=== PATIENT | male | born 1935 | race Caucasian/White ===

== ENCOUNTER 2016-08-04 15:10 | Outpatient (CLI) | payer MEDICARE ==
[2016-08-04 15:53] LABS: #Basophils 0.1 thou/uL (0.0-0.2); #Eosinphils 0.1 thou/uL (0.0-0.7); #Lymphocytes 1.1 thou/uL (1.20-3.40); #Monocytes 0.7 thou/uL (0.11-0.59); #Neutrophils 5.1 thou/uL (1.40-6.50); %Basophils 1.4 % (0.0-1.0); %Eosinophils 1.3 % (0.0-10.0); %Lymphocytes 14.9 % (21.0-51.0); %Monocytes 9.8 % (0.0-10.0); %Neutrophils 72.7 % (42.0-75.0); Hemoglobin 8.6 g/dL (14.0-18.0); Mean Corpuscular HGB CONC 31.5 g/dL (32.0-36.0); Mean Corpuscular Hemoglobin 27.1 pg (27.0-31.0); Mean Corpuscular Volume 86.1 fl (80.0-94.0); Mean Platelet Volume 8.4 fL (7.4-10.4); Platelet Count 231 thou/uL (130-400); RBC Distribution Width 15.2 % (11.5-14.5); Red Blood Cell (RBC) Count 3.17 mill/uL (4.70-6.10)
[2016-08-04 15:55] LABS: Anion Gap 16 mmol/L (10-20); BUN (Urea Nitrogen) 35 mg/dL (8.4-25.7); Calc. Creatinine Clearance 0 mL/min (70-130); Calcium 8.7 mg/dL (7.8-10.44); Carbon Dioxide 21 mmol/L (23-31); Chloride 106 mmol/L (98-107); Estimated GFR-MDRD 35; Glucose 118 mg/dL (83-110); Potassium 5.1 mmol/L (3.5-5.1); Sodium 138 mmol/L (136-145)
== END 2016-08-04 15:11 | disposition home or self-care (01) ==
LOC: BURLAB 15:10
PROVIDERS: ATTEND Specialist
DX: I25.10 Atherosclerotic heart disease of native coronary artery without angina pectoris (principal); R06.02 Shortness of breath; R53.83 Other fatigue; Z79.899 Other long term (current) drug therapy
CPT/HCPCS: 36415; 80048; 85025

== ENCOUNTER 2016-08-20 09:10 | Outpatient (CLI) | payer MEDICARE ==
[2016-08-20 17:48] LABS: Iron 15 ug/dL (65-175); Iron Binding Capacity, Total 435 mcg/dL (261-462)
== END 2016-08-20 09:11 | disposition home or self-care (01) ==
LOC: BURLAB 09:10
PROVIDERS: ATTEND Specialist
DX: D50.9 Iron deficiency anemia, unspecified (principal)
CPT/HCPCS: 36415; 82728; 83540; 83550

== ENCOUNTER 2016-09-17 08:47 | Outpatient (CLI) | payer MEDICARE ==
[2016-09-17 09:20] LABS: Mean Corpuscular HGB CONC 31.2 g/dL (32.0-36.0); Mean Corpuscular Hemoglobin 27.6 pg (27.0-31.0); Mean Corpuscular Volume 88.3 fl (80.0-94.0); Mean Platelet Volume 9.1 fL (7.4-10.4); Platelet Count 222 thou/uL (130-400); RBC Distribution Width 20.4 % (11.5-14.5); Red Blood Cell (RBC) Count 4.35 mill/uL (4.70-6.10); White Blood Cell (WBC) Count 6.5 thou/uL (4.8-10.8)
== END 2016-09-17 08:48 | disposition home or self-care (01) ==
LOC: BURLAB 08:47
PROVIDERS: ATTEND Specialist
DX: Z51.81 Encounter for therapeutic drug level monitoring (principal); Z79.899 Other long term (current) drug therapy
CPT/HCPCS: 36415; 85027

== ENCOUNTER 2017-01-12 10:55 | Outpatient (CLI) | payer MEDICARE | END 2017-01-12 10:56 | disposition home or self-care (01) | LOC: HPCALD 10:55 | PROVIDERS: ATTEND Family Medicine | DX: M25.571 Pain in right ankle and joints of right foot (principal) | CPT/HCPCS: 36415; 84550 ==

== ENCOUNTER 2017-01-12 10:55 | Outpatient (CLI) | payer MEDICARE ==
--- NOTE | 2017-01-12 20:08 | RAD ---
RIGHT ANKLE THREE VIEWS: 01/12/17 The oblique view has some motion artifact on it. No acute fracture was seen. Old injury is evident a t the medial malleolus an the tip of the lateral malleolus. The joint space appears normal. A small calcaneal spur was present. Pes planus is suggested. IMPRESSION: Old injuries but no acute finding. POS: HOME
== END 2017-01-12 10:56 | disposition home or self-care (01) ==
LOC: BURRAD 10:55
PROVIDERS: ATTEND Family Medicine
DX: M25.571 Pain in right ankle and joints of right foot (principal)
CPT/HCPCS: 36415; 84550

== ENCOUNTER 2018-07-06 10:25 | Emergency (ER) | payer MEDICARE ==
[2018-07-06] MEDS ORDERED: Aspirin Chewable 81 MG TAB ONE (10:40)
[2018-07-06] MEDS ORDERED: Nitroglycerin 0.4 MG TAB 1 EACH ONE (10:40)
[2018-07-06 10:44] LABS: #Basophils 0.1 thou/uL (0.0-0.2); #Eosinphils 0.1 thou/uL (0.0-0.7); #Lymphocytes 2.2 thou/uL (1.20-3.40); #Monocytes 0.8 thou/uL (0.11-0.59); #Neutrophils 3.6 thou/uL (1.40-6.50); %Basophils 1.4 % (0.0-1.0); %Eosinophils 2.1 % (0.0-10.0); %Lymphocytes 32.7 % (21.0-51.0); %Monocytes 11.1 % (0.0-10.0); %Neutrophils 52.6 % (42.0-75.0); Hemoglobin 13.3 g/dL (14.0-18.0); Mean Corpuscular HGB CONC 32.4 g/dL (32.0-36.0); Mean Corpuscular Hemoglobin 33.2 pg (27.0-31.0); Mean Platelet Volume 8.8 fL (7.4-10.4); Platelet Count 196 thou/uL (130-400); RBC Distribution Width 13.5 % (11.5-14.5); White Blood Cell (WBC) Count 6.7 thou/uL (4.8-10.8)
[2018-07-06 11:02] LABS: ALT (SGPT) 19 U/L (8-55); AST (SGOT) 24 U/L (5-34); Albumin 4.2 g/dL (3.4-4.8); Alkaline Phosphatase 74 U/L (40-150); Anion Gap 14 mmol/L (10-20); BUN (Urea Nitrogen) 25 mg/dL (8.4-25.7); Bilirubin, Total 0.5 mg/dL (0.2-1.2); Calc. Creatinine Clearance 0 mL/min (70-130); Calcium 9.2 mg/dL (7.8-10.44); Carbon Dioxide 24 mmol/L (23-31); Chloride 105 mmol/L (98-107); Estimated GFR-MDRD 39; Globulin 3.3 g/dL (2.4-3.5); Glucose 100 mg/dL (83-110); Lipase 34 U/L (8-78); Potassium 4.1 mmol/L (3.5-5.1); Protein, Total 7.5 g/dL (5.8-8.1); Sodium 139 mmol/L (136-145)
--- NOTE | 2018-07-06 21:58 | CT ---
CT AORTIC DISSECTION: 07/06/2018 TECHNIQUE: A spiral CT of the chest and abdomen, to cover the entirety of the aorta, was performed. Axial slice s were acquired after a bolus of IV contrast, and scanning was done in the arterial phase. Coronal a nd sagittal reconstructions were then done. I also reviewed a 2016 MRI of the lumbar spine to see so me of the abdominal structures. The aorta is well opacified. There is no sign of focal aneurysm or dissection. Considerable arterio sclerotic change is seen in the abdominal portion of the aorta. and the proximal iliac arteries. Bec ause this study was done in the arterial phase, the pulmonary arteries are not sufficiently opacified to comment on presence or absence of emboli. There is no sign of pericardial effusion. There is extensive calcification in the left anterior desc ending artery with humerous irregular areas within it. Some calcium is also seen in the right hoffman ry artery. No mediastinal masses or significant adenopathy with sound. Changes are seen throughout the lungs. There is some motion artifact present, which makes it difficult to see well. There may b e some mild congestion of the venous vessels. No large effusions are present. The celiac artery, SMA, and SATURNINO feel well. The left renal artery is unremarkable. There is probably some calcification and possibly some stenosis at the origin of the right renal artery. A large para pelvic cyst is seen in the left kidney, measuring 3.6 cm in size. It was present on a 2016 MRI. The liver, spleen, and pancreas show no acute findings. The adrenal glands appear normal. The visibl e sections of bowel show no dilation or wall thickening. Degenerative changes are prominent in the s pine. IMPRESSION: 1. No evidence of aneurysm or dissection. 2. No acute thoracic changes. 3. Substantial calcification and irregularity of the left anterior descending artery. 4. There may be slight stenosis at the origin of the right renal artery. 5. Left renal parapelvic cyst. 6. Hiatal hernia. POS: HOME
--- NOTE | 2018-07-06 22:09 | RAD ---
PORTABLE CHEST: Date: 07/06/18 An AP portable film at 1057 hours is compared with an 03/08/07 study. The heart is stable in size. Median sternotomy sutures are seen from prior surgery. While there may b e some very slight interstitial prominence today, it is no more so than before and the upper lobe ves sels do not appear very congested. There is a little bit of pleural thickening in the left costophren ic angle region. This seems minimally more prominent than it was in 2007. IMPRESSION: Some chronic changes, but no dramatic acute findings. POS: HOME
== END 2018-07-06 13:29 | disposition short-term general hospital (02) ==
LOC: BURERS 10:25
DX: R07.89 Other chest pain (principal); Z79.899 Other long term (current) drug therapy; Z79.84 Long term (current) use of oral hypoglycemic drugs
CPT/HCPCS: 71045; 71275; 80053; 83690; 83880; 84484; 85025; 85379; 93005

== ENCOUNTER 2019-09-13 11:47 | Emergency (ER) | payer MEDICARE ==
[2019-09-13] MEDS ORDERED: Aspirin Chewable 81 MG TAB ONE (11:55)
[2019-09-13] MEDS ORDERED: Nitroglycerin 50 MG/250 ML BOT 250 ML ONE (11:55)
[2019-09-13 12:15] LABS: #Basophils 0.1 thou/uL (0.0-0.2); #Eosinphils 0.1 thou/uL (0.0-0.7); #Lymphocytes 2.1 thou/uL (1.20-3.40); #Monocytes 0.7 thou/uL (0.11-0.59); #Neutrophils 3.9 thou/uL (1.40-6.50); %Basophils 0.9 % (0.0-1.0); %Eosinophils 1.4 % (0.0-10.0); %Lymphocytes 30.5 % (21.0-51.0); %Monocytes 10.4 % (0.0-10.0); %Neutrophils 56.8 % (42.0-75.0); Hemoglobin 12.8 g/dL (14.0-18.0); Mean Corpuscular HGB CONC 30.9 g/dL (32.0-36.0); Mean Corpuscular Hemoglobin 32.1 pg (27.0-31.0); Mean Platelet Volume 9.7 fL (7.4-10.4); Platelet Count 163 thou/uL (130-400); Red Blood Cell (RBC) Count 3.98 mill/uL (4.70-6.10); White Blood Cell (WBC) Count 6.9 thou/uL (4.8-10.8)
[2019-09-13 12:20] LABS: D-Dimer Test 1.23 *mcg/mL (0.27-0.43); INR-International Normal Ratio 1.1; PTT 27.2 SEC (22.9-36.1); Prothrombin Time 13.7 sec (12.0-14.7)
[2019-09-13 12:28] LABS: ALT (SGPT) 19 U/L (8-55); AST (SGOT) 23 U/L (5-34); Albumin 4.3 g/dL (3.4-4.8); Alkaline Phosphatase 94 U/L (40-110); Anion Gap 13 mmol/L (10-20); BUN (Urea Nitrogen) 26 mg/dL (8.4-25.7); Bilirubin, Total 0.6 mg/dL (0.2-1.2); Calc. Creatinine Clearance 0 mL/min (70-130); Carbon Dioxide 23 mmol/L (23-31); Chloride 109 mmol/L (98-107); Estimated GFR-MDRD 40; Globulin 3.1 g/dL (2.4-3.5); Glucose 106 mg/dL (83-110); Potassium 4.4 mmol/L (3.5-5.1); Protein, Total 7.4 g/dL (5.8-8.1); Sodium 141 mmol/L (136-145)
--- NOTE | 2019-09-13 14:42 | RAD ---
PORTABLE CHEST: DATE: 09/13/2019. FINDINGS: An AP portable film at 1207 is compared with a 07/06/2008 exam. Median sternotomy sutures are seen as usual. The heart is not enlarged, nor is there any vascular co ngestion, or edema. The left costophrenic angle is somewhat indistinct. There may be a small amount of fluid or pleural scarring here. I believe there is some minor lingular scarring. No major lobar infiltrate was seen. IMPRESSION: Slight blunting of the left costophrenic angle. PA and lateral views as followup could be helpful at better demonstrating this patient's chest, as some of the lateral portions are partially obscured by overlapping soft tissues. POS: HOME
== END 2019-09-13 12:20 | disposition short-term general hospital (02) ==
LOC: BURERS 11:47
DX: I21.19 ST elevation (STEMI) myocardial infarction involving other coronary artery of inferior wall (principal)
CPT/HCPCS: 71045; 80053; 84484; 85025; 85379; 85610; 85730; 93005; 94760; 96365

== ENCOUNTER 2020-02-20 17:13 | Emergency (ER) | payer MEDICARE ==
--- NOTE | 2020-02-20 18:03 | CT ---
CT OF THE BRAIN WITHOUT CONTRAST: 02/20/[address] of the brain was done without IV contrast following trauma. No prior scans were available f or comparison. The ventricles are normal in size for age and trophy. There is no ventricular shift. No intracranial bleeding or extra-axial hematoma was seen. There is no sign of mass, edema, or acute stroke. The vert ebral arteries are heavily calcified as they enter the foramen magnum. The skull appears intact. Ther e are no air fluid levels in the visible paranasal sinuses, and the mastoid air cells are clear. IMPRESSION: No acute intracranial findings. POS: HOME
--- NOTE | 2020-02-20 18:10 | CT ---
CT OF THE CERVICAL SPINE: 02/20/[address] of the cervical spine was done following trauma. No fracture, dislocation, or soft tissue swelling was seen. The disc spaces are generally normal in h [age] for age. There is considerable degenerative change in the facet joints of the cervical spine. t he C1 to dens distance is normal. Findings my level follow: C1-C2: No acute findings. C2-C3: Facet arthritis but no acute findings. C3-C4: Minor disc osteophyte complex centrally. Facet arthritis particularly bad on the left. C4-C5: Central disc osteophyte complex without evidence of significant encroachment. Mild right shakeel inal stenosis. Bilateral facet arthritis. C5-C6: Slightly more prominent central disc osteophyte complex, though there is probably still no sig nificant impingement. The foramina are patent. Facet arthritis is present bilaterally. C6-C7: No acute findings. C7-T1: No acute findings. T1-T2: No acute findings. T2-T3: No acute findings. The lung apices are clear and fully inflated. IMPRESSION: Significant degenerative change throughout, but no fracture or other acute traumatic change was seen. POS: HOME
[2020-02-20 18:16] LABS: #Basophils 0.1 thou/uL (0.0-0.2); #Eosinphils 0.1 thou/uL (0.0-0.7); #Lymphocytes 1.3 thou/uL (1.20-3.40); #Monocytes 0.6 thou/uL (0.11-0.59); #Neutrophils 4.6 thou/uL (1.40-6.50); %Monocytes 9.4 % (0.0-10.0); %Neutrophils 69.6 % (42.0-75.0); Hemoglobin 9.2 g/dL (14.0-18.0); Mean Corpuscular HGB CONC 30.8 g/dL (32.0-36.0); Mean Corpuscular Hemoglobin 29.3 pg (27.0-31.0); Mean Corpuscular Volume 95.1 fL (78.0-98.0); Mean Platelet Volume 7.9 fL (7.4-10.4); Platelet Count 122 thou/uL (130-400); RBC Distribution Width 15.6 % (11.5-14.5); Red Blood Cell (RBC) Count 3.13 mill/uL (4.70-6.10); White Blood Cell (WBC) Count 6.6 thou/uL (4.8-10.8)
[2020-02-20 18:33] LABS: ALT (SGPT) 27 U/L (8-55); AST (SGOT) 37 U/L (5-34); Albumin 3.5 g/dL (3.4-4.8); Alkaline Phosphatase 83 U/L (40-110); Anion Gap 14 mmol/L (10-20); BUN (Urea Nitrogen) 25 mg/dL (8.4-25.7); Bilirubin, Total 0.4 mg/dL (0.2-1.2); Calc. Creatinine Clearance 0 mL/min (70-130); Calcium 8.2 mg/dL (7.8-10.44); Carbon Dioxide 25 mmol/L (23-31); Chloride 106 mmol/L (98-107); Estimated GFR-MDRD 40; Globulin 2.8 g/dL (2.4-3.5); Glucose 98 mg/dL (83-110); Potassium 5.4 mmol/L (3.5-5.1); Protein, Total 6.3 g/dL (5.8-8.1); Sodium 140 mmol/L (136-145)
[2020-02-20 18:52] LABS: Bilirubin Negative (Negative); Blood, Urine Negative (Negative); Clarity Clear (Clear); Glucose, Urine (Dipstick) Negative (Negative); Ketone, Urine Negative (Negative); Leukocyte Negative (Negative); Nitrite Negative (Negative); Protein, Urine (Dipstick) Trace mg/dL (Neg-Trace)
--- NOTE | 2020-02-20 19:19 | RAD ---
LEFT FEMUR SIX VIEWS: 02/20/20 No major fracture was seen. There is no dislocation at the hip, only some mild joint space narrowing. A total knee arthroplasty is present. There is no major effusion at the knee. No gross loosening of the hardware was indicated. Arteriosclerotic change is seen in the femoral and popliteal arteries. IMPRESSION: No acute bony findings. POS: HOME
--- NOTE | 2020-02-20 19:53 | CT ---
CT OF THE CHEST, ABDOMEN AND PELVIS WITH CONTRAST: 02/20/[address] of the chest, abdomen and pelvis was done after injection of IV contrast in this patient wi th recent trauma. CT OF THE THORAX: There is no pericardial effusion. There is dense coronary arteriosclerosis. No mediastinal hematoma, mass or adenopathy was seen. A minimal hiatal hernia was noted. The lungs are fully inflated with no sign of pneumothorax or significant pleural effusion. There is some pleural thickening on the left, p articularly in the lower hemithorax. This could be from prior trauma. Parts of the pleura are calcifi ed so asbestos exposure is in the differential, but I would tend towards prior trauma in this case. T here are a few streaky areas in the lung bases that are most likely scarring and/or atelectasis. The same can be said in the left upper lobe peripherally. Regarding the ribs, No fractures were seen. No acute thoracic fractures were appreciated. CT ABDOMEN AND PELVIS: The liver, spleen, pancreas, adrenal glands, gallbladder (seen poorly), kidneys and abdominal aorta a ll showed no acute changes. There was no sign of laceration or hematoma to any major organ. A large p arapelvic cyst is seen associated with the left kidney. There is no aortic aneurysm but there is dens e arteriosclerosis of the lower abdominal aorta. There is no distention of bowel to suggest obstructi on. There is no thickening of bowel wall. No free air or free fluid was detected. CT of the pelvis shows no pelvic masses, fluid collections, or inflammatory changes. Diverticulosis i s noted. The bony pelvis and lumbar spine appear intact. There is slight spondylolisthesis of L4 on L 5 along with some mild concentric bulging of the disc at this level. No vertebral fractures were seen . Incidental findings on this study include fat filled inguinal hernias bilaterally (larger on the le ft) and a small hiatal hernia. IMPRESSION: No acute traumatic changes in the chest, abdomen or pelvis. All scans discussed with Dr. Alva at 1803 on 02/20/20. POS: HOME
== END 2020-02-20 19:10 | disposition home or self-care (01) ==
LOC: BURERS 17:13
DX: S50.11XA Contusion of right forearm, initial encounter (principal); S70.12XA Contusion of left thigh, initial encounter; S00.81XA Abrasion of other part of head, initial encounter; S50.312A Abrasion of left elbow, initial encounter; D62 Acute posthemorrhagic anemia; I25.10 Atherosclerotic heart disease of native coronary artery without angina pectoris; E11.9 Type 2 diabetes mellitus without complications; I25.2 Old myocardial infarction; V43.52XA Car driver injured in collision with other type car in traffic accident, initial encounter; Z79.899 Other long term (current) drug therapy; Z79.84 Long term (current) use of oral hypoglycemic drugs; Z79.82 Long term (current) use of aspirin
CPT/HCPCS: 36415; 70450; 71260; 72125; 74177; 80053; 81003; 84484; 85025; 93005; 94760

== ENCOUNTER 2020-03-05 14:16 | Emergency (ER) | payer MEDICARE ==
[2020-03-05 15:08] LABS: #Lymphocytes 0.5 thou/uL (1.20-3.40); #Monocytes 0.7 thou/uL (0.11-0.59); #Neutrophils 7.4 thou/uL (1.40-6.50); %Basophils 0.2 % (0.0-1.0); %Lymphocytes 6.2 % (21.0-51.0); %Monocytes 8.2 % (0.0-10.0); %Neutrophils 85.4 % (42.0-75.0); Mean Corpuscular Hemoglobin 29.5 pg (27.0-31.0); Mean Corpuscular Volume 92.2 fL (78.0-98.0); Mean Platelet Volume 8.7 fL (7.4-10.4); Platelet Count 261 thou/uL (130-400); RBC Distribution Width 16.3 % (11.5-14.5); Red Blood Cell (RBC) Count 3.72 mill/uL (4.70-6.10); White Blood Cell (WBC) Count 8.7 thou/uL (4.8-10.8)
[2020-03-05 15:21] LABS: ALT (SGPT) 42 U/L (8-55); AST (SGOT) 50 U/L (5-34); Albumin 3.7 g/dL (3.4-4.8); Alkaline Phosphatase 102 U/L (40-110); Anion Gap 19 mmol/L (10-20); BUN (Urea Nitrogen) 25 mg/dL (8.4-25.7); Bilirubin, Total 0.6 mg/dL (0.2-1.2); Calc. Creatinine Clearance 0 mL/min (70-130); Calcium 8.6 mg/dL (7.8-10.44); Carbon Dioxide 21 mmol/L (23-31); Chloride 104 mmol/L (98-107); Globulin 3.1 g/dL (2.4-3.5); Glucose 143 mg/dL (83-110); Potassium 3.8 mmol/L (3.5-5.1); Protein, Total 6.8 g/dL (5.8-8.1); Sodium 140 mmol/L (136-145)
--- NOTE | 2020-03-05 18:12 | RAD ---
PORTABLE CHEST: 03/05/20 Comparison is made with a CT of the chest that was done on 03/22/20. There are now streaky infiltrates in the lungs, most notably in the left mid lung zone peripherally a nd to a lesser extent in the right renita-infrahilar region. In the appropriate clinical setting, this could signify infection, including COVID. The heart does not seem to be markedly enlarged, nor do the vessels seem congested to suggest that this is congestive change. There are no effusions. IMPRESSION: Patchy parenchymal opacities, particularly in the peripheral left lung. In the correct clinical setti ng, infection should be considered. Code T POS: HOME
--- NOTE | 2020-03-05 18:44 | CT ---
CT OF THE CHEST WITHOUT CONTRAST: 03/05/20 Comparison is made with the prior CT dated 02/20/20. In the interval, there has been the appearance of multiple patchy ground glass infiltrates throughout the lobes bilaterally. All lobes are affected to one extent or another. In this patient, lower lobe are more effective than upper. Infection is presumed and COVID should be a prime suspect. There are n o effusions. Coronary artery calcifications are present, especially in the left coronary system. No mediastinal ma ss or adenopathy was seen. No acute fractures were appreciated. There is some slight pleural thickeni ng in the left posterior hemithorax along with a little calcification of the pleura. This could be fr om a prior injury/hemothorax or old asbestos exposure. Scans into the upper part of the abdomen showe d no acute changes within the visible areas. IMPRESSION: Interval appearance of diffuse patchy ground glass infiltrates, all lobes. COVID should be presumed u ntil proven otherwise. Preliminary report called to Dr. Sinha at 1822 on 03/05/20. POS: HOME
[2020-03-05] MEDS ORDERED: cefTRIAXone\\ROCEPHIN 2 GM VIAL ONE (19:42)
[2020-03-05] MEDS ORDERED: Azithromycin 500 MG VIAL ONE (19:42)
[2020-03-05] MEDS ORDERED: Dexamethasone 4 mg/ml Vial ONE (19:42)
== END 2020-03-05 21:45 | disposition short-term general hospital (02) ==
LOC: BURERS 14:16
DX: J18.9 Pneumonia, unspecified organism (principal); I25.10 Atherosclerotic heart disease of native coronary artery without angina pectoris; E11.9 Type 2 diabetes mellitus without complications; I25.2 Old myocardial infarction; Z79.899 Other long term (current) drug therapy; Z79.84 Long term (current) use of oral hypoglycemic drugs; Z79.82 Long term (current) use of aspirin
CPT/HCPCS: 36415; 71045; 71250; 80053; 83880; 84484; 85025; 87040; 93005; 96365; 96367; 96375; J0456; J0696; J1100

== ENCOUNTER 2021-02-12 11:26 | Outpatient (CLI) | payer MEDICARE | END 2021-02-12 11:27 | disposition home or self-care (01) | LOC: BURRAD 11:26 | PROVIDERS: ATTEND Physician Assistant | DX: M17.11 Unilateral primary osteoarthritis, right knee (principal); M25.561 Pain in right knee ==

== ENCOUNTER 2021-12-03 09:22 | Emergency (ER) | payer MEDICARE | END 2021-12-03 10:37 | disposition home or self-care (01) | LOC: BURERS 09:22 | DX: S83.91XA Sprain of unspecified site of right knee, initial encounter (principal); I25.10 Atherosclerotic heart disease of native coronary artery without angina pectoris; E11.9 Type 2 diabetes mellitus without complications; I25.2 Old myocardial infarction; Z98.890 Other specified postprocedural states; Z79.82 Long term (current) use of aspirin; Z79.84 Long term (current) use of oral hypoglycemic drugs; Z79.899 Other long term (current) drug therapy; X58.XXXA Exposure to other specified factors, initial encounter ==

== ENCOUNTER 2022-09-01 11:19 | Emergency (ER) | payer MEDICARE ==
[2022-09-01] MEDS ORDERED: Ibuprofen 200 MG TAB ONE (11:35)
[2022-09-01] MEDS ORDERED: traMADol HCl 50 MG TAB ONE (11:35)
== END 2022-09-01 12:33 | disposition home or self-care (01) ==
LOC: BURERS 11:19
DX: S22.31XA Fracture of one rib, right side, initial encounter for closed fracture (principal); I25.10 Atherosclerotic heart disease of native coronary artery without angina pectoris; E11.9 Type 2 diabetes mellitus without complications; W19.XXXA Unspecified fall, initial encounter

== ENCOUNTER 2023-12-21 08:52 | Inpatient (IN) | payer MEDICARE ==
[2023-12-21] MEDS ORDERED: Acetaminophen 325 MG TAB PO PRN (18:01)
[2023-12-21 18:04] VITALS: BMI 28.8
[2023-12-21] MEDS: Atorvastatin Calcium 40 MG TAB PO SCH (21:03)
[2023-12-21] MEDS: Melatonin 3 MG TAB PO PRN (21:03)
[2023-12-21] MEDS: Ascorbic Acid 500 mg Chewable Tablet PO SCH (21:04)
[2023-12-21] MEDS: Acetaminophen/Codeine 30-300mg Tablet PO PRN (21:04)
[2023-12-21] MEDS: Aspirin 81 mg Enteric Coated Tablet PO SCH (21:05)
[2023-12-21] MEDS: Acyclovir 400 mg Tablet PO SCH (21:06)
[2023-12-22] MEDS: Acetaminophen 325 MG TAB PO PRN (09:19)
[2023-12-22] MEDS: Enoxaparin 40 MG (0.4 mL) SYRINGE SC SCH (09:20)
[2023-12-22] MEDS: Ferrous Sulfate 325 MG TAB PO SCH (09:21)
[2023-12-22] MEDS: Pantoprazole DR 40 MG TAB PO SCH (09:21)
[2023-12-22] MEDS: Isosorbide Mononitrate 30 MG ER.TAB PO SCH (09:21)
[2023-12-22] MEDS: Losartan 50 MG TAB PO SCH (09:21)
[2023-12-22 13:01] VITALS: BMI 28.8
[2023-12-23] MEDS: RELAXIUM PO PRN (20:20)
[2023-12-24] MEDS: Polyethylene Glycol 3350 17 GM Packet PO SCH (12:52)
[2023-12-25] MEDS: Polyethylene Glycol 3350 17 GM Packet PO SCH (08:47)
[2023-12-26] MEDS: Furosemide 20 MG TAB PO SCH (12:28)
[2023-12-27] MEDS: Furosemide 20 MG TAB PO SCH (09:21)
[2023-12-28 08:27] LABS: #Basophils 0.1 thou/uL (0.0-0.2); #Eosinphils 0.1 thou/uL (0.0-0.7); #Lymphocytes 0.9 thou/uL (1.20-3.40); #Monocytes 0.5 thou/uL (0.11-0.59); #Neutrophils 5.8 thou/uL (1.40-6.50); %Eosinophils 0.9 % (0.0-10.0); %Lymphocytes 11.8 % (21.0-51.0); %Monocytes 6.3 % (0.0-10.0); %Neutrophils 80.1 % (42.0-75.0); Hematocrit 25.6 % (42.0-52.0); Hemoglobin 8.5 g/dL (14.0-18.0); Mean Corpuscular HGB CONC 33.2 g/dL (32.0-36.0); Mean Corpuscular Hemoglobin 31.2 pg (27.0-31.0); Mean Corpuscular Volume 94.1 fl (78.0-98.0); Mean Platelet Volume 7.1 fL (7.4-10.4); Platelet Count 261 10x3/uL (130-400); RBC Distribution Width 14.2 % (11.5-14.5); Red Blood Cell (RBC) Count 2.72 mill/uL (4.70-6.10); White Blood Cell (WBC) Count 7.2 10x3/uL (4.8-10.8)
[2023-12-28 08:49] LABS: Anion Gap 13 mmol/L (10-20); BUN (Urea Nitrogen) 24 mg/dL (8.4-25.7); Calc. Creatinine Clearance 44 mL/min (70-130); Calcium 8.2 mg/dL (7.8-10.44); Carbon Dioxide 24 mmol/L (23-31); Chloride 105 mmol/L (98-107); Estimated GFR 45; Glucose 144 mg/dL (83-110); Potassium 4.7 mmol/L (3.5-5.1); Sodium 137 mmol/L (136-145)
[2023-12-31] MEDS: Ondansetron ODT 4 MG TAB PO PRN (09:16)
[2024-01-06] MEDS: Nystatin Cream 15 GM TUBE TOP SCH ×2 (13:04→20:46)
[2024-01-07 06:10] VITALS: BP 136/64; TEMP 98.1
== END 2024-01-07 12:45 | disposition home health service (06) | DRG 561 ==
LOC: BURMED 14:25
PROVIDERS: ADMIT Family Medicine; ATTEND Family Medicine
DX: S72.91XD Unspecified fracture of right femur, subsequent encounter for closed fracture with routine healing (principal); I25.10 Atherosclerotic heart disease of native coronary artery without angina pectoris; I10 Essential (primary) hypertension; E78.5 Hyperlipidemia, unspecified; Z79.899 Other long term (current) drug therapy; Z88.2 Allergy status to sulfonamides; Z91.040 Latex allergy status; Z95.5 Presence of coronary angioplasty implant and graft; Z88.8 Allergy status to other drugs, medicaments and biological substances; Z95.1 Presence of aortocoronary bypass graft; D64.89 Other specified anemias
CPT/HCPCS: 36415; 80048; 85025; J1650; Q0162